=== PATIENT | male | born 1930 | race Caucasian/White ===

== ENCOUNTER 2020-08-31 14:52 | Emergency (ER) | payer BC, MEDICAID, MEDICARE ==
--- NOTE | 2020-08-31 15:46 | EDM.PDOC ---
ED HPI GENERAL MEDICAL PROBLEM - General Chief Complaint: General Stated Complaint: MED[facility] Time Seen by Provider: 08/31/20 15:20 Source of Information: Reports: Patient, EMS, Family History Limitations: Reports: No Limitations - History of Present Illness INITIAL COMMENTS - FREE TEXT/NARRATIVE: 89-year-old male was driving on the highway when he suddenly developed tunnel vision, lightheaded, woozy and felt like he might pass out. He rolled down his window in the car and got some fresh air and it improved but within 1 to 2 minutes he arrived at his destination and was afraid to get out of the car thinking he might faint. This has not happened to him in the past, he did not feel palpitations, shortness of breath, headache, diaphoresis, nausea or vomiting. He had just had a stressful confrontation with his insurance company about a medication, but no medication changes. He then called EMS because he was concerned, by the time EMS arrived at the [facility] where he was waiting he felt fine. EMS got normal vitals, normal glucose level, and an EKG that showed some PACs but otherwise normal sinus rhythm. Onset: Sudden Duration: Other (Symptoms onset was about 1 hour ago and only lasted 2 to 3 minutes) Location: Reports: Generalized Improves with: Reports: Other (Fresh air and time seem to help) Associated Symptoms: Reports: Malaise. Denies: Confusion, Chest Pain, Cough, Diaphoresis, Fever/Chills, Nausea/Vomiting, Weakness - Related Data Allergies Allergy/AdvReac Type Severity Reaction Status Date / Time No Known Allergies Allergy Verified 08/31/20 15:03 Home Meds: Home Meds Apixaban [Eliquis] 5 mg PO BID 08/31/20 [History] Aspirin 81 mg PO DAILY 08/31/20 [History] Multivitamin 1 tab PO DAILY 08/31/20 [History] Omeprazole 20 mg PO BEDTIME 08/31/20 [History] Tamsulosin HCl 0.4 mg PO BEDTIME 08/31/20 [History] carvediloL [Carvedilol] 3.125 mg PO BID 08/31/20 [History] Past Medical History HEENT History: Reports: Hard of Hearing, Impaired Vision, Other (See Below) 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 Gastrointestinal History: Reports: GERD Musculoskeletal History: Reports: Fracture Oncologic (Cancer) History: Reports: Colon - Past Surgical History Cardiovascular Surgical History: Reports: AAA Repair, AICD, Coronary Artery Stent GI Surgical History: Reports: Cholecystectomy, Colon, Hernia, Abdominal Social & Family History - Tobacco Use Tobacco Use Status *Q: Former Tobacco User Used Tobacco, but Quit: Yes Month/Year Tobacco Last Used: 0 - Caffeine Use Caffeine Use: Reports: Coffee - Alcohol Use Days Per Week of Alcohol Use: 7 Number of Drinks Per Day: 1 Total Drinks Per Week: 7 - Recreational Drug Use Recreational Drug Use: No ED ROS GENERAL - Review of Systems Review Of Systems: See Below Constitutional: Denies: Fever, Chills HEENT: Reports: Other (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 Denies: Vision Change Respiratory: Denies: Shortness of Breath, Cough Cardiovascular: Denies: Chest Pain, Palpitations GI/Abdominal: Denies: Nausea, Vomiting Psychiatric: Reports: No Symptoms ED EXAM, GENERAL - Physical Exam Exam: See Below Exam Limited By: No Limitations General Appearance: Alert, No Apparent Distress Eye Exam: Bilateral Eye: Other (Left eye is prosthetic, the right is normal) Head: Atraumatic Neck: Supple. No: Carotid Bruit, Lymphadenopathy (R), Lymphadenopathy (L) Respiratory/Chest: No Respiratory Distress, Lungs Clear Cardiovascular: Regular Rate, Rhythm, Extra Beats (Occasional) GI/Abdominal: Soft, Non-Tender Extremities: Normal Inspection. No: Pedal Edema, Joint Swelling Neurological: Alert, Oriented, No Motor/Sensory Deficits Psychiatric: Normal Affect, Normal Mood Course - Vital Signs Last Recorded V/S: Last Vital Signs Temp 98 F 08/31/20 15:06 Pulse 62 08/31/20 16:31 Resp 11 L 08/31/20 16:31 BP 112/71 08/31/20 16:31 Pulse Ox 96 08/31/20 16:31 - Orders/Labs/Meds Labs: Laboratory Tests 08/31/20 08/31/20 Range/Units 15:53 15:53 WBC 4.7 (4.5-11.0) K/uL RBC 4.41 (4.30-5.90) M/uL Hgb 14.1 (12.0-15.0) g/dL Hct 43.4 (40.0-54.0) % MCV 98 (80-98) fL MCH 32 H (27-31) pg MCHC 33 (32-36) % Plt Count 154 (150-400) K/uL Neut % (Auto) 56 (36-66) % Lymph % (Auto) 24 (24-44) % Cassia % (Auto) 12 H (2-6) % Eos % (Auto) 7 H (2-4) % Baso % (Auto) 1 (0-1) % Sodium 141 (140-148) mmol/L Potassium 4.6 (3.6-5.2) mmol/L Chloride 107 (100-108) mmol/L Carbon Dioxide 25 (21-32) mmol/L Anion Gap 8.7 (5.0-14.0) mmol/L BUN 24 H (7-18) mg/dL Creatinine 1.2 (0.8-1.3) mg/dL Est Cr Clr Drug Dosing 42.84 mL/min Estimated GFR (MDRD) 57 L (>60) Glucose 94 (74-106) mg/dL Calcium 8.9 (8.5-10.1) mg/dL Troponin I < 0.017 (0.000-0.056) ng/mL - Re-Assessments/Exams Free Text/Narrative Re-Assessment/Exam: 08/31/20 15:47 Patient has not had labs in "a long time". A CBC, BMP and troponin were obtained and he was put on cardiac monitoring while awaiting lab results. He remained in a sinus rhythm with occasional PACs. O2 saturations on room air were normal, blood pressure was normal, and pulse was normal. He was afebrile. He remained asymptomatic. 08/31/20 16:42 All labs are normal, troponin is negative and patient will be discharged with a diagnosis of near syncope. senior procurement manager showed occasional PACs otherwise stable. Departure - Departure Time of Disposition: 17:06 Disposition: Home, Self-Care 01 Clinical Impression: Vasovagal near syncope - Discharge Information Instructions: Near-Syncope, [id number] Referrals: PCP,None [Primary Care Provider] - Forms: ED Department Discharge Care Plan Goals: Continue your current medications, stay hydrated, and increase activity as tolerated. Return anytime if symptoms are recurrent or you develop other concerns. Sepsis Event Note (ED) - Evaluation Sepsis Screening Result: No Definite Risk
== END 2020-08-31 17:04 | disposition home or self-care (01) ==
LOC: JP.ED 14:52
DX: R55 Syncope and collapse (principal); I25.2 Old myocardial infarction; K21.9 Gastro-esophageal reflux disease without esophagitis; Z79.82 Long term (current) use of aspirin; Z79.01 Long term (current) use of anticoagulants; Z79.899 Other long term (current) drug therapy; Z87.891 Personal history of nicotine dependence
CPT/HCPCS: 36415; 80048; 84484; 85025; 99282; 99284